=== PATIENT | male | born 1965 | race Caucasian/White ===

== ENCOUNTER 2021-04-22 12:00 | Observation (INO) | payer BC ==
[~2021-04-22] VITALS: Ht 185.4 cm; Wt 142.9 kg
[~2021-04-22 12:00] MED LIST: HYDROCODON-ACE1 EAC2 PO; ZOFRAN4 MG PO
[2021-04-22 12:54] LABS: HEMOGLOBIN 16.6 gm/dl (14.0-17.5); RED BLOOD COUNT 5.19 M/UL (4.20-5.50); WHITE BLOOD COUNT 8.9 K/UL (4.5-11.0)
[2021-04-22 13:16] LABS: BUN/CREATININE RATIO 15 (0-10)
[2021-04-22] MEDS ORDERED: NEXIUM40 MG PO (20:28)
[2021-04-22] MEDS ORDERED: LISINOPRIL10 MG PO (20:29)
[2021-04-22] MEDS ORDERED: FAMOTIDINE40 MG PO (20:29)
[2021-04-22] MEDS ORDERED: GLUCOPHAGE 500500 MG PO (20:29)
[2021-04-22] MEDS ORDERED: BAYER CHEWABLE81 MG PO (20:30)
[2021-04-22] MEDS ORDERED: BACLOFEN20 MG PO (20:31)
[2021-04-22] MEDS ORDERED: VITAMIN D325 MCG PO (20:31)
[2021-04-22] MEDS ORDERED: DOXYCYCLINE PO (20:31)
[2021-04-22] MEDS ORDERED: VITAMIN B PO (20:32)
[2021-04-23] MEDS ORDERED: NICOTINE PATCH1 EAC2 TOP (13:13)
[2021-04-23] MEDS ORDERED: CLARITIN 10MG T10 MG PO (13:13)
== END 2021-04-23 14:29 | disposition home or self-care (01) ==
LOC: ER1 12:00 → CDU 17:00 → MED SURG 4 20:11
PROVIDERS: Emergency Medicine; ADMIT Internal Medicine Infectious Disease
DX: R07.89 Other chest pain (principal); K21.00 Gastro-esophageal reflux disease with esophagitis, without bleeding; I10 Essential (primary) hypertension; E11.9 Type 2 diabetes mellitus without complications; G89.29 Other chronic pain; M54.9 Dorsalgia, unspecified; F17.210 Nicotine dependence, cigarettes, uncomplicated; Z90.49 Acquired absence of other specified parts of digestive tract; Z20.822 Contact with and (suspected) exposure to COVID-19; Z79.82 Long term (current) use of aspirin; Z79.84 Long term (current) use of oral hypoglycemic drugs; Z79.899 Other long term (current) drug therapy
CPT/HCPCS: ECHO; 36415; 71045; 80053; 82550; 82553; 83690; 83874; 84484; 85025; 85379; 93005; 93306; 99285; G0378; U0002

== ENCOUNTER → 2021-06-11 | Outpatient (CLI) | payer BC ==
[~2021-06-11] MED LIST changes: +BACLOFEN20 MG PO; +BAYER CHEWABLE81 MG PO; +CLARITIN 10MG T10 MG PO; +DOXYCYCLINE PO; +FAMOTIDINE40 MG PO; +GLUCOPHAGE 500500 MG PO; +LISINOPRIL10 MG PO; +NEXIUM40 MG PO; +NICOTINE PATCH1 EAC2 TOP; +VITAMIN B PO; +VITAMIN D325 MCG PO
== END ==
LOC: NM 10:00
DX: R07.9 Chest pain, unspecified (principal)
CPT/HCPCS: 78452; 93017; A9502; J2785